=== PATIENT | female | born 1990 | race Caucasian/White ===

== ENCOUNTER 2019-06-07 20:54 | Emergency (ER) | payer OTHER ==
--- NOTE | 2019-06-07 21:34 | ED ---
Female Urogenital HPI - General Chief complaint: Vaginal Bleeding Stated complaint: 6 wks , side pain Time Seen by Provider: 06/07/19 21:15 Source: patient Mode of arrival: ambulatory Limitations: no limitations - History of Present Illness Initial comments: Patient is a 29-year-old female, 6 week , presenting to emergency Department with chief complaint of abdominal pain. Patient reports left-sided abdominal sharp pain that comes in waves has been ongoing for about 5 days. Patient reports the pain is exacerbated with specific positional movement such as [id number] rotation and forward flexion. 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 Patient reports the occasional vaginal spotting that is pink in color over the last several days. Patient denies any increased urgency or frequency more than her usual during . Patient denies any dysuria or bowel symptoms. Patient denies hematuria, hematochezia or melena. Patient denies any chest pain shortness of breath headaches or back pain at this time. Patient reports she has not seen an laundry tech yet and is waiting for approval from Dr. Melton. - Related Data Home Medications Medication Instructions Recorded Confirmed Vit No.124/Iron/Folic 1 tab PO DAILY 03/05/15 07/10/15 [ Vitamin Tablet] Previous Rx's Medication Instructions Recorded Acetaminophen-Codeine 300-30mg 2 each PO Q4HR PRN #30 tab 07/11/15 [Tylenol w/codeine #3] Ibuprofen [Motrin] 600 mg PO Q6HR PRN #30 tab 07/11/15 Sennosides-Docusate Sodium 2 each PO BID@0800,2000 #30 tab 07/11/15 [Senokot-S] Cephalexin [Keflex] 500 mg PO BID #14 cap 06/08/19 Allergies Allergy/AdvReac Type Severity Reaction Status Date / Time penicillin G Allergy Unknown Verified 06/07/19 21:14 Review of Systems ROS Statement: Those systems with pertinent positive or pertinent negative responses have been documented in the HPI. ROS Other: All systems not noted in ROS Statement are negative. Past Medical History Past Medical History: No Reported History Additional Past Medical History / Comment(s): Obstetric history: This is her first . She has had care with me since 16 weeks but did not come between 21 and 34 weeks. Oneg, abs neg, Rub Imm, RPR NR, Hep B neg, HIV NR. She did receive rhogam on 05-25. GBS neg. History of Any Multi-Drug Resistant Organisms: None Reported Past Surgical History: Appendectomy Past Anesthesia/Blood Transfusion Reactions: No Reported Reaction Past Psychological History: No Psychological Hx Reported Smoking Status: Never smoker Past Alcohol Use History: None Reported Past Drug Use History: None Reported - Past Family History Mother Family Medical History: No Reported History General Exam Limitations: no limitations General appearance: alert, in no apparent distress Head exam: Present: atraumatic, normocephalic, normal inspection Eye exam: Present: normal appearance Pupils: Present: normal accommodation ENT exam: Present: normal exam, mucous membranes moist, normal external ear exam Neck exam: Present: normal inspection, full ROM Respiratory exam: Present: normal lung sounds bilaterally Cardiovascular Exam: Present: regular rate, normal rhythm, normal heart sounds GI/Abdominal exam: Present: soft, tenderness (Left suprapubic region), normal bowel sounds Extremities exam: Present: normal inspection, full ROM. Absent: tenderness Back exam: Present: normal inspection, full ROM. Absent: tenderness, CVA tenderness (R), CVA tenderness (L), muscle spasm, paraspinal tenderness, v ertebral tenderness Neurological exam: Present: alert, oriented X3 Psychiatric exam: Present: normal affect, normal mood Skin exam: Present: warm, intact, normal color Course Vital Signs 06/07/19 06/07/19 21:11 22:20 Temperature 98.7 F 97.6 F Pulse Rate 83 88 Respiratory 16 18 Rate Blood Pressure 120/74 132/78 O2 Sat by Pulse 99 98 Oximetry Medical Decision Making - Medical Decision Making Patient is a 29-year-old female, , 6 week presenting to the emergency department with a chief complaint of abdominal pain. Physical examination the pain appears to be in the left suprapubic region with no CVA tenderness. The patient appears to be reducible specific positions such as left right rotation and forward flexion. This appears to be musculoskeletal in nature. Patient does work a physically demanding job that requires a lot of bending and lifting. CBC does show mild leukocytosis although this is most likely due to the . UA does show some leukocyte esterase and white blood cells. Patient will be treated for a UTI. Vaginal ultrasound is indicative of dichorionic diamniotic . No ectopic noted. Patient has a hCG Quant of 225K. Patient has no other vaginal discharge or foul odor. Patient is not concerned for STDs. This can place the patient had about 7-8 weeks of . Patient appears to have occasional vaginal spotting. On reevaluation patient reports improvement in her symptoms without any treatment. Patient reports she is scheduled to see an laundry tech on Saturday. Strict return parameters were thoroughly discussed with patient was understanding and agreeable. Case discussed physician. - Lab Data Result diagrams: 06/07/19 21:38 06/07/19 21:38 Lab Results 06/07/19 06/07/19 06/07/19 Range/Units 21:38 21:38 21:38 WBC 12.4 H (3.8-10.6) k/uL RBC 3.60 L (3.80-5.40) m/uL Hgb 12.4 (11.4-16.0) gm/dL Hct 36.0 (34.0-46.0) % MCV 100.0 (80.0-100.0) fL MCH 34.5 (25.0-35.0) pg MCHC 34.5 (31.0-37.0) g/dL RDW 11.9 (11.5-15.5) % Plt Count 229 (150-450) k/uL Neutrophils % 80 % Lymphocytes % 14 % Monocytes % 3 % Eosinophils % 2 % Basophils % 0 % Neutrophils # 9.9 H (1.3-7.7) k/uL Lymphocytes # 1.7 (1.0-4.8) k/uL Monocytes # 0.3 (0-1.0) k/uL Eosinophils # 0.3 (0-0.7) k/uL Basophils # 0.0 (0-0.2) k/uL Sodium 136 L (137-145) mmol/L Potassium 3.9 (3.5-5.1) mmol/L Chloride 106 (98-107) mmol/L Carbon Dioxide 23 (22-30) mmol/L Anion Gap 7 mmol/L BUN 12 (7-17) mg/dL Creatinine 0.60 (0.52-1.04) mg/dL Est GFR (CKD-EPI)AfAm >90 (>60 ml/min/1.73 sqM) Est GFR (CKD-EPI)NonAf >90 (>60 ml/min/1.73 sqM) Glucose 89 (74-99) mg/dL Calcium 9.0 (8.4-10.2) mg/dL Total Bilirubin 0.1 L (0.2-1.3) mg/dL AST 17 (14-36) U/L ALT 19 (9-52) U/L Alkaline Phosphatase 54 (38-126) U/L Total Protein 6.8 (6.3-8.2) g/dL Albumin 4.0 (3.5-5.0) g/dL HCG, Quant >881281.0 mIU/mL Urine Color Urine Appearance (Clear) Urine pH (5.0-8.0) Ur Specific Mcintyre (1.001-1.035) Urine Protein (Negative) Urine Glucose (UA) (Negative) Urine Ketones (Negative) Urine Blood (Negative) Urine Nitrite (Negative) Urine Bilirubin (Negative) Urine Urobilinogen (<2.0) mg/dL Ur Leukocyte Esterase (Negative) Urine RBC (0-5) /hpf Urine WBC (0-5) /hpf Ur Squamous Epith Cells (0-4) /hpf Urine Bacteria (None) /hpf Urine Mucus (None) /hpf Blood Type O Negative Blood Type Recheck O Neg Bld Type Recheck Status No Antibody Screen NEGATIVE Spec Expiration Date 06/10/2019233706/07/19 Range/Units 21:38 WBC (3.8-10.6) k/uL RBC (3.80-5.40) m/uL Hgb (11.4-16.0) gm/dL Hct (34.0-46.0) % MCV (80.0-100.0) fL MCH (25.0-35.0) pg MCHC (31.0-37.0) g/dL RDW (11.5-15.5) % Plt Count (150-450) k/uL Neutrophils % % Lymphocytes % % Monocytes % % Eosinophils % % Basophils % % Neutrophils # (1.3-7.7) k/uL Lymphocytes # (1.0-4.8) k/uL Monocytes # (0-1.0) k/uL Eosinophils # (0-0.7) k/uL Basophils # (0-0.2) k/uL Sodium (137-145) mmol/L Potassium (3.5-5.1) mmol/L Chloride (98-107) mmol/L Carbon Dioxide (22-30) mmol/L Anion Gap mmol/L BUN (7-17) mg/dL Creatinine (0.52-1.04) mg/dL Est GFR (CKD-EPI)AfAm (>60 ml/min/1.73 sqM) Est GFR (CKD-EPI)NonAf (>60 ml/min/1.73 sqM) Glucose (74-99) mg/dL Calcium (8.4-10.2) mg/dL Total Bilirubin (0.2-1.3) mg/dL AST (14-36) U/L ALT (9-52) U/L Alkaline Phosphatase (38-126) U/L Total Protein (6.3-8.2) g/dL Albumin (3.5-5.0) g/dL HCG, Quant mIU/mL Urine Color Yellow Urine Appearance Clear (Clear) Urine pH 6.5 (5.0-8.0) Ur Specific Mcintyre 1.026 (1.001-1.035) Urine Protein Trace H (Negative) Urine Glucose (UA) Negative (Negative) Urine Ketones Negative (Negative) Urine Blood Negative (Negative) Urine Nitrite Negative (Negative) Urine Bilirubin Negative (Negative) Urine Urobilinogen 3.0 (<2.0) mg/dL Ur Leukocyte Esterase Small H (Negative) Urine RBC 1 (0-5) /hpf Urine WBC 15 H (0-5) /hpf Ur Squamous Epith Cells 1 (0-4) /hpf Urine Bacteria Rare H (None) /hpf Urine Mucus Few H (None) /hpf Blood Type Blood Type Recheck Bld Type Recheck Status Antibody Screen Spec Expiration Date Disposition Clinical Impression: Abdominal pain during intrauterine , Twin Disposition: HOME SELF-CARE Instructions (If sedation given, give patient instructions): Abdominal Pain in (ED) Additional Instructions: Please follow up with the laundry tech. Please take prescribed medication as directed. Please return to emergency department is symptoms worsen. Prescriptions: Cephalexin [Keflex] 500 mg PO BID #14 cap Is patient prescribed a controlled substance at d/c from ED?: No Referrals: None,Stated [Primary Care Provider] - 1-2 days Time of Disposition: 00:34
[2019-06-07 21:55] LABS: Basophils % (A) 0 %; Eosinophils # (A) 0.3 k/uL (0-0.7); Eosinophils % (A) 2 %; HGB 12.4 gm/dL (11.4-16.0); Lymphocytes # (A) 1.7 k/uL (1.0-4.8); Lymphocytes % (A) 14 %; MCH 34.5 pg (25.0-35.0); MCHC 34.5 g/dL (31.0-37.0); Mean Platelet Volume 7.1; Monocytes # (A) 0.3 k/uL (0-1.0); Monocytes % (A) 3 %; Neutrophils # (A) 9.9 k/uL (1.3-7.7); Neutrophils % (A) 80 %; Platelet Count 229 k/uL (150-450); RDW 11.9 % (11.5-15.5); WBC 12.4 k/uL (3.8-10.6)
[2019-06-07 21:59] LABS: Appearance,Urine Clear (Clear); Bacteria,Urine Rare /hpf; Bilirubin,Urine Negative (Negative); Blood,Urine Negative (Negative); Color,Urine Yellow; Glucose,Urine (UA) Negative (Negative); Ketones,Urine Negative (Negative); Leukocyte Esterase,Urine Small (Negative); Mucus,Urine Few /hpf; Nitrite,Urine Negative (Negative); PH, Urine 6.5 (5.0-8.0); Protein,Urine Trace (Negative); RBC,Urine 1 /hpf (0-5); Specific Gravity,Urine 1.026 (1.001-1.035); Squamous Epithelial Cell,Urine 1 /hpf (0-4)
[2019-06-07 22:10] LABS: ALT 19 U/L (9-52); AST 17 U/L (14-36); African American GFR (CKD) >90 (>60 ml/min/1.73 sqM); Alkaline Phosphatase 54 U/L (38-126); Anion Gap 7 mmol/L; Blood Urea Nitrogen 12 mg/dL (7-17); Carbon Dioxide 23 mmol/L (22-30); Chloride 106 mmol/L (98-107); Glucose 89 mg/dL (74-99); Potassium 3.9 mmol/L (3.5-5.1); Sodium 136 mmol/L (137-145); Total Bilirubin 0.1 mg/dL (0.2-1.3); Total Protein 6.8 g/dL (6.3-8.2)
[2019-06-07 22:47] VITALS: BP 132/78; PULSE 88; RESP 18; TEMP 97.6
--- NOTE | 2019-06-07 23:14 | US ---
EXAMINATION TYPE: US OB <= 14 wk twins DATE OF EXAM: 06/07/2019 COMPARISON: NONE CLINICAL HISTORY: left abd pain, preg 6 wks, spotting. pink spotting and LLQ pain, EXAM PERFORMED: OBTA EXAM MEASUREMENTS: GESTATIONAL AGE / DATING Physician Established: Not yet established Dates by LMP: (7 weeks/4 days) EDC: 01/20/2020 Dates by First Scan: No previous this is first scan Dates by Current Scan for Baby A: (7 weeks/1 days) EDC: 01/23/2020 Dates by Current Scan for Baby B: (7 weeks/1 days) EDC: 01/23/2020 MATERNAL ANATOMY Uterus: 11.4 x 8.1 x 8.4cm Right Ovary: 3.6 x 3.1 x 2.2cm Left Ovary: not seen due to enlarging Ut and bowel gas Post CDS / Adnexa: wnl Presence of free fluid: no Presence of corpus luteal cyst: yes, right = 2.5cm Presence of subchorionic bleed: no Presence of two separate gestational sacs: yes GESTATION / SURVEY TWIN A CRL: 1.0cm (7wks/1days) MSD: wnl Yolk Sac (normal less than 6mm): 0.3cm Heart Rate: 162 bpm Rhythm: Normal IUP: Viable IUP TWIN B CRL: 1.0cm (7wks/1days) MSD: wnl Yolk Sac (normal less than 6mm): 0.3cm Heart Rate: 166 bpm Rhythm: Normal IUP: Viable IUP Date of LMP: 04/15/2019 Beta HcG (if available): not available There is dichorionic diamniotic twin gestation. There is thick septum the gestational sacs . No complicating process seen. IMPRESSION:
[2019-06-08 00:14] LABS: HCG,Quantitative Serum >225000.0 mIU/mL
== END 2019-06-08 00:40 | disposition home or self-care (01) ==
LOC: EC 20:54
DX: O99.89 Other specified diseases and conditions complicating pregnancy, childbirth and the puerperium (principal); R10.9 Unspecified abdominal pain; O30.041 Twin pregnancy, dichorionic/diamniotic, first trimester; O23.41 Unspecified infection of urinary tract in pregnancy, first trimester; O99.111 Other diseases of the blood and blood-forming organs and certain disorders involving the immune mechanism complicating pregnancy, first trimester; D72.829 Elevated white blood cell count, unspecified; Z88.0 Allergy status to penicillin; Z90.49 Acquired absence of other specified parts of digestive tract; Z3A.01 Less than 8 weeks gestation of pregnancy
CPT/HCPCS: 36415; 76801; 76802; 80053; 81001; 84702; 85025; 86850; 86900; 86901; 87086; 99284

== ENCOUNTER → 2019-08-11 | Outpatient (CLI) | payer OTHER ==
[2019-08-12 10:40] LABS: Alpha Fetoprotein 83.2 ng/mL; Alpha Fetoprotein (M.O.M) 1.01; B-HCG (M.O.M.) 0.57; Gestational Age (days) 6; Human Chorionic Gonadotropin 31.1 IU/mL; Inhibin A (M.O.M.) 0.78; Interpretation SeeBelow; Maternal Age at EDD (Yrs) 30; Smoker No; Unconjugated Estriol (M.O.M.) 0.69
== END | disposition home or self-care (01) ==
LOC: LABWHC1 13:11
PROVIDERS: ATTEND Obstetrics & Gynecology
DX: Z34.82 Encounter for supervision of other normal pregnancy, second trimester (principal); Z3A.00 Weeks of gestation of pregnancy not specified
CPT/HCPCS: 36415; 82105; 82677; 84439; 84443; 84479; 84702; 86336

== ENCOUNTER → 2019-09-30 | Outpatient (CLI) | payer OTHER ==
[2019-09-30 13:55] VITALS: BP 133/68; PULSE 85; RESP 18; TEMP 98.5
--- NOTE | 2019-10-04 10:05 | P.MSEPDOC ---
Presenting Problems - Arrival Data Date of Arrival on Unit: 09/30/19 Time of Arrival on Unit: 11:50 Mode of Transport: Ambulatory - Complaint OB-Reason for Admission/Chief Complaint: Other Comment: questionable labor. intercourse and mucous plug. Medical History - Information : 2 Para: 1 Term: 1 : 0 Abortions: Spontaneous or Elective: 0 Number of Living Children: 1 - Gestational Age Gestational Age by KIESHA (wks/days): 23 Weeks and 4 Days Review of Systems - Review of Systems Constitutional: No problems Breast: No problems ENT: No problems Cardiovascular: No problems Respiratory: No problems Gastrointestinal: No problems Genitourinary: No problems Musculoskeletal: No problems Neurological: No problems Skin: No problems Comment: no bloody show or leak of fluid. slight mucous clear during vag exam. Vital Signs - Temperature Temperature: 98.5 F Temperature Source: Oral - Pulse Right Brachial Pulse Rate: 85 Pulse Assessment Method: Automatic Cuff - Respirations Respiratory Rate: 18 Oxygen Delivery Method: Room Air - Blood Pressure Right Arm Blood Pressure: 133/68 Blood Pressure Mean: 89 Blood Pressure Source: Automatic Cuff Medical Screen Scoring (Pre) - Cervical Exam Dilation: 0 cm = 0 Membranes: Intact - Uterine Contractions Frequency: N/A Duration: N/A Intensity: N/A - Maternal Vital Signs Maternal Temperature: N/A Maternal Blood Pressure: N/A Signs of Preeclampsia: N/A Maternal Respirations: N/A - Maternal Trauma Maternal Trauma: N/A - Assessment - Baby A Baseline FHR: 135 Heart Rate - NICHD Category: Category I (Normal) = 0 NST: Reactive Position: N/A Station: N/A - Assessment - Baby B Baseline FHR: 135 Heart Rate - NICHD Category: Category I (Normal) = 0 NST: Reactive Position: N/A Station: N/A - Total Score - Baby A Total Score - Baby A: 0 - Total Score - Baby B Total Score - Baby B: 0 - Total Score - Baby C Total Score - Baby C: 0 - Level of Risk - Baby A Level of Risk - Baby A: Low (0-5) - Level of Risk - Baby B Level of Risk - Baby B: Low (0-5) - Level of Risk - Baby C Level of Risk - Baby C: Low (0-5) Physician Notification (Pre) - Physician Notified Physician Notified Date: 09/30/19 Physician Notified Time: 12:15 New Order Received: Yes - Notification Comment Comment: observe and recheck cervix at 1315. If no change may discharge home to keep next sched appt. Disposition - Disposition OB Disposition: Discharge to home Discharge Date: 09/30/19 Discharge Time: 13:20 I agree with the RN Medical Screening Exam: Yes Risk & Benefit of care provided described in d/c instruction: Yes Diagnosis: FALSE LABOR BEFORE 37 COMPLETED WEEKS OF GEST, SECOND TRI
== END | disposition home or self-care (01) ==
LOC: FBPOP 11:48
PROVIDERS: ATTEND Obstetrics & Gynecology
DX: O47.02 False labor before 37 completed weeks of gestation, second trimester (principal); Z3A.23 23 weeks gestation of pregnancy
CPT/HCPCS: 99213

== ENCOUNTER → 2019-10-23 | Outpatient (CLI) | payer OTHER ==
[2019-10-23 14:50] LABS: HCT 37.2 % (34.0-46.0); HGB 12.8 gm/dL (11.4-16.0); MCH 34.9 pg (25.0-35.0); MCHC 34.3 g/dL (31.0-37.0); MCV 101.6 fL (80.0-100.0); Mean Platelet Volume 9.3; Platelet Count 203 k/uL (150-450); RBC 3.66 m/uL (3.80-5.40); RDW 12.3 % (11.5-15.5); WBC 10.3 k/uL (3.8-10.6)
== END | disposition home or self-care (01) ==
LOC: LABWHC1 13:31
PROVIDERS: ATTEND Obstetrics & Gynecology
DX: O30.009 Twin pregnancy, unspecified number of placenta and unspecified number of amniotic sacs, unspecified trimester (principal); Z3A.00 Weeks of gestation of pregnancy not specified
CPT/HCPCS: 36415; 82950; 85027; 86850

== ENCOUNTER 2019-12-08 16:07 | Outpatient (CLI) | payer OTHER ==
[2019-12-08] MEDS ORDERED: BETAMET ACET-BETAMETH SOD PHOS 6 MG/ML VIAL IM SCH (16:45)
[2019-12-08 17:25] VITALS: BP 120/72; PULSE 109; RESP 16; TEMP 98.7
--- NOTE | 2019-12-09 16:32 | P.MSEPDOC ---
Presenting Problems - Arrival Data Date of Arrival on Unit: 12/08/19 Time of Arrival on Unit: 16:07 Mode of Transport: Ambulatory - Complaint OB-Reason for Admission/Chief Complaint: NST, Celestone Injection Comment: pt sent by Dr. Burns for NST of twins and Celestone injection Medical History - Information : 2 Para: 1 Term: 1 : 0 Abortions: Spontaneous or Elective: 0 Number of Living Children: 1 - Gestational Age Gestational Age by KIESHA (wks/days): 33 Weeks and 6 Days - History Complications: Multiple Review of Systems - Review of Systems Constitutional: No problems Breast: No problems ENT: No problems Cardiovascular: No problems Respiratory: No problems Gastrointestinal: No problems Genitourinary: No problems Musculoskeletal: No problems Neurological: No problems Skin: No problems Vital Signs - Temperature Temperature: 98.7 F Temperature Source: Temporal Artery Scan - Pulse Right Brachial Pulse Rate: 109 Pulse Assessment Method: Automatic Cuff - Respirations Respiratory Rate: 16 Oxygen Delivery Method: Room Air O2 Sat by Pulse Oximetry: 100 - Blood Pressure Right Arm Blood Pressure: 120/72 Blood Pressure Mean: 88 Blood Pressure Source: Automatic Cuff Medical Screen Scoring (Pre) - Cervical Exam Dilation: Exam Deferred Effacement: Exam Deferred Membranes: Intact - Uterine Contractions Frequency: N/A Duration: N/A Intensity: N/A - Maternal Vital Signs Maternal Temperature: N/A Maternal Blood Pressure: N/A Signs of Preeclampsia: N/A Maternal Respirations: N/A - Maternal Trauma Maternal Trauma: N/A - Assessment - Baby A Baseline FHR: 135 Heart Rate - NICHD Category: Category I (Normal) = 0 NST: Reactive Position: N/A Station: N/A - Assessment - Baby B Baseline FHR: 135 Heart Rate - NICHD Category: Category I (Normal) = 0 NST: Reactive Position: N/A Station: N/A - Total Score - Baby A Total Score - Baby A: 0 - Total Score - Baby B Total Score - Baby B: 0 - Total Score - Baby C Total Score - Baby C: 0 - Level of Risk - Baby A Level of Risk - Baby A: Low (0-5) - Level of Risk - Baby B Level of Risk - Baby B: Low (0-5) - Level of Risk - Baby C Level of Risk - Baby C: Low (0-5) Physician Notification (Pre) - Physician Notified Physician Notified Date: 12/08/19 Physician Notified Time: 17:05 New Order Received: Yes - Notification Comment Comment: Dr. Romero notified of reactive NST and Celestone injection given. orders recieved to discharge home. Disposition - Disposition OB Disposition: Discharge to home Discharge Date: 12/08/19 Discharge Time: 17:05 I agree with the RN Medical Screening Exam: Yes Risk & Benefit of care provided described in d/c instruction: Yes Diagnosis: TWIN , DICHORIONIC/DIAMNIOTIC, THIRD TRIMESTER
== END 2019-12-08 17:05 | disposition home or self-care (01) ==
LOC: FBPOP 16:07
PROVIDERS: ATTEND Obstetrics & Gynecology
DX: O30.043 Twin pregnancy, dichorionic/diamniotic, third trimester (principal); Z3A.33 33 weeks gestation of pregnancy
CPT/HCPCS: 59025; 96372; J0702

== ENCOUNTER 2019-12-09 21:39 | Outpatient (CLI) | payer OTHER ==
[2019-12-09] MEDS ORDERED: BETAMET ACET-BETAMETH SOD PHOS 6 MG/ML MDV IM SCH (21:45)
== END 2019-12-09 21:57 | disposition home or self-care (01) ==
LOC: FBPOP 21:39
PROVIDERS: ATTEND Obstetrics & Gynecology
DX: O30.003 Twin pregnancy, unspecified number of placenta and unspecified number of amniotic sacs, third trimester (principal); Z3A.34 34 weeks gestation of pregnancy
CPT/HCPCS: 96372; J0702

== ENCOUNTER 2019-12-18 11:33 | Outpatient (CLI) | payer OTHER ==
[2019-12-18 12:33] VITALS: BP 118/68; PULSE 101; RESP 16; TEMP 97.9
--- NOTE | 2020-01-07 09:33 | P.MSEPDOC ---
Presenting Problems - Arrival Data Date of Arrival on Unit: 12/18/19 Time of Arrival on Unit: 11:33 Mode of Transport: Ambulatory - Complaint OB-Reason for Admission/Chief Complaint: NST Comment: pt here for weekly nst for twin gestation, reports + fm x2, denies regular contractions. abd soft and non tender, pt denies lof/vb Medical History - Information : 2 Para: 1 Term: 1 : 0 Abortions: Spontaneous or Elective: 0 Number of Living Children: 1 - Gestational Age Gestational Age by KIESHA (wks/days): 35 Weeks and 2 Days Review of Systems - Review of Systems Constitutional: No problems Breast: No problems ENT: No problems Cardiovascular: No problems Respiratory: No problems Gastrointestinal: No problems Genitourinary: No problems Musculoskeletal: No problems Neurological: No problems Skin: No problems Vital Signs - Temperature Temperature: 97.9 F Temperature Source: Temporal Artery Scan - Pulse Right Brachial Pulse Rate: 101 Pulse Assessment Method: Automatic Cuff - Respirations Respiratory Rate: 16 Oxygen Delivery Method: Room Air - Blood Pressure Right Arm Blood Pressure: 118/68 Blood Pressure Mean: 84 Blood Pressure Source: Automatic Cuff Medical Screen Scoring (Pre) - Cervical Exam Dilation: Exam Deferred Effacement: Exam Deferred Membranes: Intact - Uterine Contractions Frequency: N/A Duration: N/A Intensity: N/A - Maternal Vital Signs Maternal Temperature: N/A Maternal Blood Pressure: N/A Signs of Preeclampsia: N/A Maternal Respirations: N/A - Maternal Trauma Maternal Trauma: N/A - Assessment - Baby A Baseline FHR: 135 Heart Rate - NICHD Category: Category I (Normal) = 0 NST: Reactive Position: Non-vertex & not laboring = 3 Station: N/A - Assessment - Baby B Baseline FHR: 135 Heart Rate - NICHD Category: Category I (Normal) = 0 NST: Reactive Position: N/A Station: N/A - Total Score - Baby A Total Score - Baby A: 3 - Total Score - Baby B Total Score - Baby B: 0 - Total Score - Baby C Total Score - Baby C: 0 - Level of Risk - Baby A Level of Risk - Baby A: Low (0-5) - Level of Risk - Baby B Level of Risk - Baby B: Low (0-5) - Level of Risk - Baby C Level of Risk - Baby C: Low (0-5) Physician Notification (Pre) - Physician Notified Physician Notified Date: 12/18/19 Physician Notified Time: 12:16 New Order Received: Yes (dc home) - Notification Comment Comment: reviewed nst results with dr perrin, pt ok to dc home Disposition - Disposition OB Disposition: Discharge to home, Written follow up instructions reviewed Discharge Date: 12/18/19 Discharge Time: 12:20 I agree with the RN Medical Screening Exam: Yes Risk & Benefit of care provided described in d/c instruction: Yes Diagnosis: TWIN , DICHORIONIC/DIAMNIOTIC, THIRD TRIMESTER
== END 2019-12-18 12:20 | disposition home or self-care (01) ==
LOC: FBPOP 11:33
PROVIDERS: ATTEND Obstetrics & Gynecology
DX: O30.043 Twin pregnancy, dichorionic/diamniotic, third trimester (principal); Z3A.35 35 weeks gestation of pregnancy
CPT/HCPCS: 59025

== ENCOUNTER 2019-12-25 19:23 | Outpatient (CLI) | payer OTHER ==
[2019-12-25 21:24] VITALS: BP 114/75; PULSE 91; RESP 20; TEMP 98.1
--- NOTE | 2019-12-25 21:28 | US ---
EXAMINATION TYPE: US OB >= 14 wk twins DATE OF EXAM: 12/25/2019 COMPARISON: NONE CLINICAL HISTORY: twin gestation. EFW GESTATIONAL AGE / DATING Physician Established: (35 weeks/6 days) EDC: 01/23/2020 Dates by LMP: (35 weeks/6 days) EDC: 01/23/2020 Dates by First Scan: ( 7 weeks/1 days) EDC: 01/23/2020 Dates by Current Scan for Baby A: (35 weeks/2 days) EDC: 01/27/2020 Dates by Current Scan for Baby B: (34 weeks/5 days) EDC: 01/31/2020 GENERAL TWIN SURVEY TWIN A LOCATION in regards to maternal abd: left TWIN B LOCATION in regards to maternal abd: right MEMBRANE SEEN: Not well CERVICAL LENGTH (transabdominal; norm > 3.0cm): Not able to visualize due to shadowing. TWIN A: SURVEY/BIOMETRY PLACENTA: Anterior PREVIA: No previa FLORENCIO:? 14.4 cm?Normal PRESENTATION: Vertex LIE: Transvers with head maternalleft BPD: 8.96 cm 36 weeks / 2 days HC: 32.31 cm 36 weeks / 4 days AC: 30.66 cm 34 weeks / 4 days FL: 6.84 cm 35 weeks / 1 days ESTIMATED WEIGHT IN GRAMS: 2599 grams ESTIMATED WEIGHT IN LBS/OZS: 5 lbs. 12 oz. HC/AC: 1.05 cm Normal FL/AC: 22.31 cm Normal HEART RATE: 160 bpm RHYTHM: Normal TWIN B: SURVEY/BIOMETRY PRESENTATION: Breech LIE: Transverse with head maternal right BPD: 8.61 cm 34 weeks / 5 days HC: 32.19 cm 36 weeks / 2 days AC: 29.47 cm 33 weeks / 3 days FL: 6.79 cm 34 weeks / 6 days ESTIMATED WEIGHT IN GRAMS: 2394 grams ESTIMATED WEIGHT IN LBS/OZS: 5 lbs. 4 oz. HC/AC: 1.09 cm Normal FL/AC: 23.04 cm Normal HEART RATE: 140 bpm RHYTHM: Normal IMPRESSION: Live twin with estimated weight of baby A of 5 pounds and 12 ounces and b yun B of 5 pounds and 4 ounces.
--- NOTE | 2019-12-25 21:31 | P.MSEPDOC ---
Presenting Problems - Arrival Data Date of Arrival on Unit: 12/25/19 Time of Arrival on Unit: 19:23 Mode of Transport: Portable - Complaint OB-Reason for Admission/Chief Complaint: NST Medical History - Information : 2 Para: 1 Term: 1 : 0 Abortions: Spontaneous or Elective: 0 Number of Living Children: 1 - Gestational Age Gestational Age by KIESHA (wks/days): 36 Weeks and 2 Days Review of Systems - Review of Systems Constitutional: No problems Breast: No problems ENT: No problems Cardiovascular: No problems Respiratory: No problems Gastrointestinal: No problems Genitourinary: No problems Musculoskeletal: No problems Neurological: No problems Skin: No problems Vital Signs - Temperature Temperature: 98.1 F Temperature Source: Oral - Pulse Right Pulse Rate: 91 Pulse Assessment Method: Automatic Cuff - Respirations Respiratory Rate: 20 Oxygen Delivery Method: Room Air O2 Sat by Pulse Oximetry: 97 - Blood Pressure Right Arm Blood Pressure: 114/75 Blood Pressure Mean: 88 Blood Pressure Source: Automatic Cuff Medical Screen Scoring (Pre) - Cervical Exam Dilation: Exam Deferred Effacement: Exam Deferred Membranes: Intact - Uterine Contractions Frequency: N/A Duration: N/A Intensity: N/A - Maternal Vital Signs Maternal Temperature: N/A Maternal Blood Pressure: N/A Signs of Preeclampsia: N/A Maternal Respirations: N/A - Maternal Trauma Maternal Trauma: N/A - Assessment - Baby A Baseline FHR: 120 Heart Rate - NICHD Category: Category I (Normal) = 0 NST: Reactive Position: N/A Station: N/A - Assessment - Baby B Baseline FHR: 130 Heart Rate - NICHD Category: Category I (Normal) = 0 NST: Reactive Position: N/A Station: N/A - Total Score - Baby A Total Score - Baby A: 0 - Total Score - Baby B Total Score - Baby B: 0 - Total Score - Baby C Total Score - Baby C: 0 - Level of Risk - Baby A Level of Risk - Baby A: Low (0-5) - Level of Risk - Baby B Level of Risk - Baby B: Low (0-5) - Level of Risk - Baby C Level of Risk - Baby C: Low (0-5) Physician Notification (Pre) - Physician Notified Physician Notified Date: 12/25/19 Physician Notified Time: 19:43 New Order Received: Yes Disposition - Disposition OB Disposition: Discharge to home Discharge Date: 12/25/19 Discharge Time: 21:01 I agree with the RN Medical Screening Exam: Yes Risk & Benefit of care provided described in d/c instruction: Yes Diagnosis: TWIN , DICHORIONIC/DIAMNIOTIC, THIRD TRIMESTER (Patient presents to labor and delivery for a ordered nonstress test and obstetrical ultrasound. This is being done for twin gestation. Nonstress test is reactive. Ultrasound shows concordant twins with normal amniotic fluid index. Patient's having good movement. I discussed these findings with her and she'll follow-up as instructed by Dr. Burns.)
== END 2019-12-25 21:00 | disposition home or self-care (01) ==
LOC: FBPOP 19:23
PROVIDERS: ATTEND Obstetrics & Gynecology
DX: O30.043 Twin pregnancy, dichorionic/diamniotic, third trimester (principal); Z3A.36 36 weeks gestation of pregnancy
CPT/HCPCS: 59025; 76805; 76810; G0463; 99213

== ENCOUNTER → 2019-12-30 | Outpatient (CLI) | payer OTHER | END | disposition home or self-care (01) | LOC: LABWHC1 10:06 | PROVIDERS: ATTEND Obstetrics & Gynecology | DX: Z11.59 Encounter for screening for other viral diseases (principal) ==

== ENCOUNTER 2020-01-01 10:13 | Inpatient (IN) | payer OTHER ==
[2019-12-31 12:42] VITALS: BMI 26.2
--- NOTE | 2019-12-31 16:56 | P.HPOB ---
History of Present Illness H&P Date: 12/31/19 Chief Complaint: Intrauterine at term: Twin gestation: se ction for malpre Leeann is a 29-year-old at 37 weeks gestation who arrives for a primary section due to malpresentation of baby B be. This baby is located in transverse lie. Risks/benefits/alternatives to a primary section with tubal occlusion were discussed with patient in detail and did include but were not limited to bleeding and infection, damage to bladder/bowel/ureters/vessels or nerves and potential need for further surgeries. All the questions are answered for her at this time. Her has been, complicated only by twin gestation but she has done very well throughout the . She has been co- managed with maternal medicine and has been receiving nonstress tests throughout the latter part the and has been followed closely with ultrasound for verification of concordance Past Medical History Past Medical History: No Reported History Additional Past Medical History / Comment(s): born w/heart murmur-thinks is resolved History of Any Multi-Drug Resistant Organisms: None Reported Past Surgical History: Appendectomy Past Anesthesia/Blood Transfusion Reactions: No Reported Reaction Smoking Status: Never smoker - Past Family History Mother Family Medical History: No Reported History Medications and Allergies Home Medications Medication Instructions Recorded Confirmed Type Vit No.124/Iron/Folic 1 tab PO DAILY 03/05/15 12/31/19 History [ Vitamin Tablet] Aspirin 81 mg PO DAILY 12/08/19 12/31/19 History Allergies Allergy/AdvReac Type Severity Reaction Status Date / Time penicillin G Allergy Unknown Verified 12/31/19 12:40 Exam Osteopathic Statement: *. No significant issues noted on an osteopathic structural exam other than those noted in the History and Physical/Consult. Intake and Output 12/31/19 12/31/19 12/31/19 06:59 14:59 22:59 Other: Weight 75.75 kg - OBG Physical Exam Breast: both: normal (no masses) Abdomen: bowel sounds normal, no diffuse tenderness, no bruit present, no guarding noted, no hepatomegaly, no splenomegaly, no mass Vulva: both: normal Vagina: normal moisture, no discharge Cervix: no lesion, no discharge Uterus: normal size, normal contour Adnexa: both: normal Anus/Rectum: normal perianal skin, no rectal mass, no hemorrhoids, heme negative
[~2020-01-01 10:13] MED LIST: CLINDAMYCIN 600 MG in DEXTROSE 5% IN WATER 50 ML IVPB STA
[2020-01-01] MEDS ORDERED: CITRIC ACID-SODIUM CITRATE 15 ML CUP PO ONE (10:29)
[2020-01-01] MEDS: LACTATED RINGERS 1,000 ML IV SCH ×4 (10:37→23:12)
[2020-01-01 11:07] LABS: Basophils % (A) 0 %; Eosinophils # (A) 0.2 k/uL (0-0.7); Eosinophils % (A) 3 %; HCT 43.2 % (34.0-46.0); HGB 14.9 gm/dL (11.4-16.0); Lymphocytes # (A) 1.5 k/uL (1.0-4.8); Lymphocytes % (A) 17 %; MCH 34.6 pg (25.0-35.0); MCHC 34.4 g/dL (31.0-37.0); MCV 100.8 fL (80.0-100.0); Mean Platelet Volume 11.1; Monocytes # (A) 0.3 k/uL (0-1.0); Monocytes % (A) 3 %; Neutrophils # (A) 6.7 k/uL (1.3-7.7); Neutrophils % (A) 76 %; Platelet Count 187 k/uL (150-450); RBC 4.29 m/uL (3.80-5.40); RDW 12.8 % (11.5-15.5); WBC 8.9 k/uL (3.8-10.6)
[2020-01-01] MEDS ORDERED: NALBUPHINE 10 MG/ML (1 ML AMP) ONE (12:29)
[2020-01-01] MEDS ORDERED: ONDANSETRON 4 MG/2 ML VIAL ONE (12:29)
[2020-01-01] MEDS ORDERED: MORPHINE SULFATE (PF) 0.3 MG/0.3 ML SYR ONE (12:29)
[2020-01-01] MEDS ORDERED: KETOROLAC 30 MG/ML 1 ML VIAL ONE (12:29)
[2020-01-01] MEDS ORDERED: ePHEDrine SULFATE/0.9% NACL/PF 50 MG/5 ML SYRINGE IV ONE (12:29)
[2020-01-01] MEDS ORDERED: NALOXONE 0.4 MG/ML 1 ML VIAL IV PRN (13:30)
[2020-01-01] MEDS ORDERED: diphenhydrAMINE 50 MG/ML 1 ML VIAL IVP PRN ×2 (13:30)
[2020-01-01] MEDS ORDERED: diphenhydrAMINE 50 MG CAP PO PRN (13:30)
[2020-01-01] MEDS ORDERED: KETOROLAC 30 MG/ML 1 ML VIAL IVP PRN (13:30)
[2020-01-01] MEDS ORDERED: ZOLPIDEM 5 MG TAB PO PRN (13:30)
[2020-01-01] MEDS ORDERED: diphenhydrAMINE 25 MG CAP PO PRN (13:30)
[2020-01-01] MEDS ORDERED: ONDANSETRON 4 MG/2 ML VIAL IVP PRN (13:30)
[2020-01-01] MEDS ORDERED: ACETAMINOPHEN TAB 325 MG TAB PO PRN (13:30)
[2020-01-01] MEDS ORDERED: METOCLOPRAMIDE 5 MG/ML 2 ML VIAL IVP PRN (13:30)
--- NOTE | 2020-01-01 13:37 | P.OP ---
Date of Procedure: 01/01/20 Preoperative Diagnosis: Intrauterine at term: Twin gestation: Family planning Postoperative Diagnosis: Same Procedure(s) Performed: Primary low transverse section with bilateral tubal occlusion with Filshie clips Anesthesia: spinal Surgeon: Asa Burns Junior Data Analyst #1: Odalis Higginbotham Estimated Blood Loss (ml): 500 IV fluids (ml): 1,500 Urine output (ml): 300 Pathology: other (Placenta) Condition: stable Disposition: floor Operative Findings: Twin baby boys scores of 9 and 9 at one and 5 minutes respectively and a weight of 6 lbs. 7 oz. for twin A and twin B 9 and 9 Apgars with a weight of 5 lbs. 4 oz. Description of Procedure: Patient was taken to the operating suite where a spinal anesthetic was found be adequate. She was prepped and draped in the normal sterile fashion and placed in the dorsal supine position with leftward tilt. Initially a Pfannenstiel skin incision was made and this incision was then carried through to the underlying layer of the fascia was second knife. Fascia was then nicked in midline and this opening was extended laterally with Harper scissors. Superior and inferior aspect of this incision were then grasped tented up and bluntly and sharply dissected off the rectus muscles. Rectus muscles were then divided the midline and sharp dissection through the peritoneum was performed. This opening was then extended superiorly and inferiorly with good visualization of both bowel bladder. Bladder blade was placed and a bladder flap identified. It was entered with metastases scissors and carried across face uterus with bladder flap digitally created. Knife was then used to incise uterus this opening was fully developed with a hemostat. This incision was then extended bluntly and head of baby A was delivered atraumatically. Mouth nares were then bulb suctioned and the shoulders and the remainder the baby were then delivered. Umbilical cord was clamped cut usual fashion with nursery personnel present to assume care. Baby B was then brought down into the incision line and with one small adjustment baby was brought into vertex presentation. Artificial rupture membranes was again performed clear fluid noted. Head was then H medically delivered and a nuchal cord 2 was easily delivered. Mouth nares were then bulb suctioned and the remainder the baby was fully delivered with nursery personnel present and assumed care. Umbilical cord was clamped cut usual fashion. Placenta was then delivered intact Pitocin was added to the IV. Uterus was then exteriorized cleared of clots and debris and closed in 1 layer with 0 Vicryl suture. Once excellent hemostasis was felt to be obtained blood and debris was suctioned from the posterior cul-de-sac. Fallopian tubes were then clipped with Filshie clips 2 cm from uterine cornu. Uterus was then reinserted the abdomen and inspection reveals Filshie clips in place with no bleeding around the abdomen. Peritoneal layer was then delineated with hemostats and closed with 3- 0 Vicryl. Fascial layer was then closed with 0 Vicryl suture. One layer of 3-0 Vicryl was placed in deep subcuticular tissues to reapproximate skin and close the space. Skin was then closed with 3-0 Vicryl subcuticularly.
[2020-01-01] MEDS ORDERED: Rhogam IMMUNE GLOBULIN 1,500 UNIT/1 ML IM ONE (18:32)
[2020-01-01] MEDS: SENNOSIDES-DOCUSATE SODIUM 1 EACH TAB PO SCH (20:19)
[2020-01-02] MEDS: LACTATED RINGERS 1,000 ML IV SCH ×4 (00:53→20:59)
[2020-01-02] MEDS: IBUPROFEN 600 MG TAB PO PRN ×3 (06:46→21:01)
[2020-01-02 07:37] LABS: Basophils % (A) 0 %; Eosinophils # (A) 0.2 k/uL (0-0.7); Eosinophils % (A) 2 %; Lymphocytes # (A) 1.4 k/uL (1.0-4.8); Lymphocytes % (A) 13 %; MCH 36.3 pg (25.0-35.0); MCHC 34.7 g/dL (31.0-37.0); MCV 104.5 fL (80.0-100.0); Macrocytosis Slight; Mean Platelet Volume 10.8; Monocytes # (A) 0.3 k/uL (0-1.0); Monocytes % (A) 3 %; Neutrophils # (A) 8.8 k/uL (1.3-7.7); Neutrophils % (A) 82 %; Platelet Count 169 k/uL (150-450); RBC 2.87 m/uL (3.80-5.40); RDW 13.3 % (11.5-15.5); WBC 10.7 k/uL (3.8-10.6)
[2020-01-02 07:39] LABS: HGB 10.4 gm/dL (11.4-16.0)
--- NOTE | 2020-01-02 08:39 | P.PNOBGPC ---
Subjective - Subjective Principal diagnosis: Postop day 1 Interval history: Leeann is doing very well postop day 1. She is involuting, voiding and she is tolerating her diet. She voices no complaints and all questions are answered for her at this time. Patient reports: Reports appetite normal, Reports voiding normally, Reports pain well controlled, Reports ambulating normally [place]: doing well Objective - Vital Signs Latest vital signs: Vital Signs Temp Pulse Resp BP Pulse Ox 01/02/20 04:00 97.7 F 66 18 108/52 01/01/20 23:21 98.2 F 60 18 105/67 01/01/20 23:20 60 18 01/01/20 20:00 98.2 F 60 18 105/67 01/01/20 16:00 97.9 F 65 16 116/62 99 01/01/20 15:25 59 L 16 102/57 99 01/01/20 14:55 61 16 105/55 99 01/01/20 14:25 73 16 103/58 01/01/20 14:10 85 16 121/56 97 01/01/20 13:55 77 16 119/58 01/01/20 13:40 76 16 106/56 97 01/01/20 13:25 97.8 F 72 16 98/55 95 01/01/20 10:28 96.9 F L 84 16 125/76 97 Intake and Output 01/01/20 01/02/20 01/02/20 22:59 06:59 14:59 Intake Total 750 Output Total 1350 Balance 750 -1350 Intake: Oral 750 Output: Urine 1350 Other: Voiding Method Indwelling Catheter Indwelling Catheter # Voids 2 - Exam Lungs: bilateral: normal Chest: Normal S1, Normal S2 Extremities: Present: normal Abdomen: Present: normal appearance, soft. Absent: distention, tenderness Incision: Present: normal, dry, intact Uterus: Present: normal, firm - Labs Labs: Abnormal Lab Results - Last 24 Hours (Table) 01/01/20 01/02/20 Range/Units 10:30 07:02 WBC 10.7 H (3.8-10.6) k/uL RBC 2.87 L (3.80-5.40) m/uL Hgb 10.4 L D (11.4-16.0) gm/dL Hct 30.0 L (34.0-46.0) % MCV 100.8 H 104.5 H (80.0-100.0) fL MCH 36.3 H (25.0-35.0) pg Neutrophils # 8.8 H (1.3-7.7) k/uL
[2020-01-02] MEDS: HYDROcodone/APAP 7.5-325MG 1 EACH TAB PO PRN ×2 (08:53→16:42)
[2020-01-02] MEDS: SENNOSIDES-DOCUSATE SODIUM 1 EACH TAB PO SCH ×2 (08:55→21:01)
[2020-01-03] MEDS: HYDROcodone/APAP 7.5-325MG 1 EACH TAB PO PRN ×4 (01:08→23:47)
[2020-01-03] MEDS: IBUPROFEN 600 MG TAB PO PRN ×3 (04:53→20:29)
[2020-01-03] MEDS: SENNOSIDES-DOCUSATE SODIUM 1 EACH TAB PO SCH ×2 (08:52→20:29)
--- NOTE | 2020-01-03 12:27 | P.PNOBGPC ---
Subjective - Subjective Principal diagnosis: Status post section postoperative day #2 Interval history: Patient is doing well. Feeding is going okay however the babies do not want a wake-up to feed too often. One baby went 6 hours in between feedings. The legislative aide is concerned with discharging the patient when the feedings are this far apart. Lochia is decreasing. She is passing flatus. She did have a small bowel movement. Pain is been fairly well-controlled with her pain medication. Patient reports: Reports appetite normal, Reports voiding normally, Reports pain well controlled, Reports ambulating normally [place]: doing well Objective - Vital Signs Latest vital signs: Vital Signs Temp Pulse Resp BP Pulse Ox 01/03/20 08:00 98.2 F 93 20 115/66 100 01/03/20 04:00 98.4 F 84 18 120/77 01/03/20 00:00 98.0 F 82 16 106/69 01/02/20 20:00 97.8 F 66 18 140/72 01/02/20 16:00 98.6 F 83 20 104/53 Intake and Output 01/02/20 01/03/20 01/03/20 22:59 06:59 14:59 Other: Voiding Method Indwelling Catheter # Voids 2 3 - Exam Extremities: Present: normal. Absent: tenderness Abdomen: Present: normal appearance, soft (Positive bowel sounds 4). Absent: distention, tenderness Incision: Present: normal, dry, intact. Absent: erythematous Uterus: Present: normal, firm. Absent: tenderness Assessment and Plan Assessment: Status post section postoperative day #2 Plan: Will continue with postoperative and care today. Will work on feedings on the babies. Anticipate discharge home tomorrow.
[2020-01-04] MEDS: IBUPROFEN 600 MG TAB PO PRN ×2 (02:54→11:40)
--- NOTE | 2020-01-04 08:54 | P.DS ---
Providers Date of admission: 01/01/20 10:13 Expected date of discharge: 01/04/20 Attending physician: Asa Burns Primary care physician: Stated None Procedures: Leeann is doing very well postop day 3. She is ambulating, voiding and to lerating her diet. She voices no complaints and is requesting discharge home today. Vital signs are stable and afebrile. Heart regular, lungs clear, extremities without pain. Abdomen is soft uterus is firm and lochia is reported to be light. Her incision is otherwise clean dry and intact. Assessment postop day 3. Plan discharged home follow up with me in 1 week. Discharge instructions are otherwise full are reviewed and prescriptions for [place] and Motrin are provided. She is stable for discharge at this time. Plan - Discharge Summary Discharge Rx Participant: No New Discharge Prescriptions: New Ibuprofen [Motrin] 600 mg PO Q6HR PRN #30 tab PRN Reason: Pain HYDROcodone/APAP 5-325MG [[place] 5-325] 1 tab PO Q4HR PRN #30 tab PRN Reason: Pain No Action Vit No.124/Iron/Folic [ Vitamin Tablet] 1 tab PO DAILY Aspirin 81 mg PO DAILY Discharge Medication List Vit No.124/Iron/Folic [ Vitamin Tablet] 1 tab PO DAILY 03/05/15 [History] Aspirin 81 mg PO DAILY 12/08/19 [History] HYDROcodone/APAP 5-325MG [[place] 5-325] 1 tab PO Q4HR PRN #30 tab 01/04/20 [Rx] Ibuprofen [Motrin] 600 mg PO Q6HR PRN #30 tab 01/04/20 [Rx] Follow up Appointment(s)/Referral(s): Asa Burns DO [Doctor of Osteopathic Medicine] - 1 Week Activity/Diet/Wound Care/Special Instructions: No heavy lifting, limit stairs and driving, and pelvic rest. If any high temperatures, heavy bleeding, or severe pain call my office Discharge Disposition: HOME SELF-CARE
[2020-01-04] MEDS: HYDROcodone/APAP 7.5-325MG 1 EACH TAB PO PRN (09:00)
[2020-01-04] MEDS: SENNOSIDES-DOCUSATE SODIUM 1 EACH TAB PO SCH (09:01)
[2020-01-04 10:10] VITALS: BP 128/79; PULSE 97; RESP 16; TEMP 98.1
== END 2020-01-04 16:30 | disposition home or self-care (01) | DRG 788 ==
LOC: 4FBP 10:13
PROVIDERS: ADMIT Obstetrics & Gynecology; ATTEND Obstetrics & Gynecology
PROC: 3E0234Z Introduction of Serum, Toxoid and Vaccine into Muscle, Percutaneous Approach (ICD-10-PCS; principal; 2020-01-01 12:00)
PROC: 10D00Z1 Extraction of Products of Conception, Low, Open Approach (ICD-10-PCS; principal; 2020-01-01 12:00)
DX: O32.2XX2 Maternal care for transverse and oblique lie, fetus 2 (principal); O30.043 Twin pregnancy, dichorionic/diamniotic, third trimester; Z37.2 Twins, both liveborn; O26.893 Other specified pregnancy related conditions, third trimester; Z67.41 Type O blood, Rh negative; O99.62 Diseases of the digestive system complicating childbirth; K21.9 Gastro-esophageal reflux disease without esophagitis; Z3A.37 37 weeks gestation of pregnancy; Z79.82 Long term (current) use of aspirin; Z79.899 Other long term (current) drug therapy
CPT/HCPCS: 85025; 85461; 86850; 86870; 86880; 86900; 86901